=== PATIENT | female | born 2005 | race Caucasian/White ===

== ENCOUNTER 2023-10-08 22:15 | Inpatient (IN) | payer OTHER ==
[2023-10-08] MEDS ORDERED: CARBOPROST TROMETHAMINE 250 MCG/ML 1 ML AMP IM PRN (22:49)
[2023-10-08] MEDS ORDERED: TERBUTALINE 1 MG/ML VIAL SQ PRN (22:49)
[2023-10-08] MEDS ORDERED: METHYLERGONOVINE 0.2 MG/ML 1 ML AMP IM PRN (22:49)
[2023-10-08] MEDS ORDERED: OXYTOCIN 10 UNIT/ML 1 ML VIAL IM PRN (22:49)
[2023-10-08] MEDS ORDERED: miSOPROStoL 200 MCG TAB PO PRN (22:49)
[2023-10-08] MEDS ORDERED: TRANEXAMIC 1,000 MG/100ML-NACL 1,000 MG in EMPTY BAG 1 BAG IV PRN (22:49)
[2023-10-08] MEDS ORDERED: OXYTOCIN 30 UNITS/500 ML NS 30 UNIT in SALINE 1 500ML.BAG IV SCH (23:00)
--- NOTE | 2023-10-08 23:10 | P.HPOB ---
History of Present Illness H&P Date: 10/08/23 Chief Complaint: Leakage of fluid Ms. Villagomez is a 18 year old at 37 weeks and 1 day with EDC of 10/28/2023 by 7 week US who presents to labor and delivery with grossly ruptured membranes with clear amniotic fluid. The patient denies vaginal bleeding, contractions. She is feeling normal movement at this time. The is otherwise complicated by a maternal weight gain of over 50 pounds during the . On growth US at 33 weeks, the fetus was estimated in the 18%ile for weight. work-up: AB positive, antibody engative, rubella non-immune, VDRL non- reactive, HBsAg negative, HIV negative, HCV Ab negative, gonorrhea negative, chlamydia negative, 1 hour GTT within normal limits, GBS negative. Past medical history: Scoliosis Past Medical History History of Any Multi-Drug Resistant Organisms: None Reported Smoking Status: Never smoker Medications and Allergies Home Medications Medication Instructions Recorded Confirmed Type Vit No.179/Iron/Folic 1 each PO DAILY 10/08/23 10/08/23 History [ Tablet] Allergies Allergy/AdvReac Type Severity Reaction Status Date / Time No Known Allergies Allergy Verified 10/08/23 22:23 Exam Vital Signs Temp Pulse Resp BP Pulse Ox 10/08/23 22:23 98.2 F 105 H 19 122/81 97 Intake and Output 10/08/23 10/08/23 10/09/23 14:59 22:59 06:59 Other: Weight 66.678 kg Focused physical exam is performed. This is a healthy-appearing in no apparent distress. Breathing is non-labored. Abdomen is gravid and non-tender. Cervical exam is 1 cm, 50% effacement, -3 station per the OB RN. Extrem ities non-tender and non-edematous. heart tones are reactive and reassuring on NST, no contractions appreciated on tocometer. Assessment and Plan Assessment: 18 year old at 37 weeks and 1 days with prelabor rupture of membranes Plan: Admit, NPO, pitocin per protocol, continuous EFM and tocometer, close monitoring of patient. Anticipate vaginal delivery. Time with Patient: Less than 30
[2023-10-08] MEDS: LACTATED RINGERS 1,000 ML IV SCH (23:22)
[2023-10-08] MEDS: OXYTOCIN 30 UNITS/500 ML NS 30 UNIT in SALINE 1 500ML.BAG IV SCH (23:23)
[2023-10-09 00:03] LABS: Basophils % (A) 0 %; Eosinophils # (A) 0.3 k/uL (0-0.7); Eosinophils % (A) 2 %; HCT 36.5 % (34.0-46.0); HGB 12.3 gm/dL (11.4-16.0); Lymphocytes # (A) 2.4 k/uL (1.0-4.8); Lymphocytes % (A) 19 %; MCH 30.4 pg (25.0-35.0); MCHC 33.8 g/dL (31.0-37.0); MCV 89.9 fL (80.0-100.0); Monocytes # (A) 0.8 k/uL (0-1.0); Monocytes % (A) 6 %; Neutrophils # (A) 8.6 k/uL (1.3-7.7); Neutrophils % (A) 70 %; Platelet Count 252 k/uL (150-450); RBC 4.06 m/uL (3.80-5.40); RDW 13.3 % (11.5-15.5); WBC 12.4 k/uL (4.0-11.0)
[2023-10-09] MEDS: NALBUPHINE 10 MG/ML (10 ML MDV) IV PRN (06:15)
[2023-10-09 08:33] LABS: INR 0.8 (<1.2); Partial Thromboplastin Time 23.5 sec (22.0-30.0); Prothrombin Time 9.5 sec (10.0-12.5)
[2023-10-09 08:54] LABS: ALT 13 U/L (4-34); AST 23 U/L (14-36); African American GFR (CKD) >90 (>60 ml/min/1.73 sqM); Blood Urea Nitrogen 7 mg/dL (7-17); LDH 245 U/L (120-246); Non-African American GFR(CKD) >90 (>60 ml/min/1.73 sqM)
[2023-10-09 09:38] LABS: Uric Acid 4.8 mg/dL (3.7-7.4)
[2023-10-09] MEDS ORDERED: diphenhydrAMINE 25 MG CAP PO PRN (11:49)
[2023-10-09] MEDS ORDERED: diphenhydrAMINE 50 MG/ML 1 ML VIAL IVP PRN ×2 (11:49)
[2023-10-09] MEDS ORDERED: LANOLIN CREAM 1 GM TUBE TOPICAL PRN (11:49)
[2023-10-09] MEDS ORDERED: SIMETHICONE 80 MG CHEWABLE PO PRN (11:49)
[2023-10-09] MEDS ORDERED: ZOLPIDEM 5 MG TAB PO PRN (11:49)
[2023-10-09] MEDS ORDERED: IBUPROFEN 600 MG TAB PO PRN (11:49)
[2023-10-09] MEDS ORDERED: HYDROCORTISONE 2.5% RECTAL CREAM 30 GM TUBE RECTAL PRN (11:49)
[2023-10-09] MEDS ORDERED: ACETAMINOPHEN TAB 325 MG TAB PO PRN (11:49)
[2023-10-09] MEDS ORDERED: diphenhydrAMINE 50 MG CAP PO PRN (11:49)
--- NOTE | 2023-10-09 11:49 | P.PROBDLV ---
Vaginal Delivery Note - . Vaginal Delivery Note: DATE OF SERVICE: 10/09/2023 PROCEDURE: Normal Vaginal Delivery ATTENDING: Dr. Luzmaria Syed MD ESTIMATED BLOOD LOSS: 100 mL FINDINGS: VMI, Apgars 8/9. Weight 5 pounds and 7 ounces (2460 grams) PROCEDURE: Ms. Villagomez is a 18 year old at 37 weeks and 2 days presenting to labor and delivery for prelabor rupture of membranes at 2044 on 10/07 revealing clear amniotic fluid. The has been complicated by maternal anxiety and depression for which she followed with a pyschiatrist and took Cymbalta. For further details, please review the admitting H&P. Pitocin was started per protocol. The patient received epidural anesthesia per her request. The patient was completely dilated at 1110. She pushed very effectively with Category II heart tones. A viable male infant was delivered over an intact perineum at 1129. The was placed on the maternal abdomen and bulb suctioned. The infant was noted to be spontaneously crying. Cord was clamped and cut after a 30-second delay. The was handed off to the pediatric team. Placenta was delivered whole with gentle cord traction at 1131. Oxytocin was started to facilitate uterine tone. Uterine fundus was found to be firm and below the umbilicus upon fundal massage. Thorough examination of the cervix, vagina, periurethral area, and perineum revealed a superficial left labia majora laceration. The patient is stable and allowed to begin the bonding process.
[2023-10-09] MEDS: LIDOCAINE 0.5% (PF) 5 MG/ML (50 ML SDV) SQ PRN (13:29)
[2023-10-09] MEDS: BENZOCAINE/MENTHOL SPRAY 1 GM/SPRAY AEROSOL TOPICAL PRN (13:30)
[2023-10-09] MEDS: SENNOSIDES-DOCUSATE SODIUM 1 EACH TAB PO SCH (20:49)
[2023-10-09] MEDS: MEASLES-MUMPS-RUBELLA VACC/PF 12,500 UNIT/0.5 ML VIAL SQ ONE (20:51)
[2023-10-10 08:34] LABS: Basophils % (A) 0 %; Eosinophils # (A) 0.2 k/uL (0-0.7); Eosinophils % (A) 1 %; HCT 33.7 % (34.0-46.0); Lymphocytes # (A) 2.8 k/uL (1.0-4.8); Lymphocytes % (A) 18 %; MCH 29.2 pg (25.0-35.0); MCHC 32.5 g/dL (31.0-37.0); Mean Platelet Volume 9.7; Monocytes # (A) 0.9 k/uL (0-1.0); Monocytes % (A) 6 %; Neutrophils # (A) 11.2 k/uL (1.3-7.7); Neutrophils % (A) 73 %; Platelet Count 212 k/uL (150-450); RBC 3.74 m/uL (3.80-5.40); RDW 13.2 % (11.5-15.5); WBC 15.3 k/uL (4.0-11.0)
--- NOTE | 2023-10-10 09:03 | P.DS ---
Providers Date of admission: 10/08/23 22:46 Expected date of discharge: 10/10/23 Attending physician: Luzmaria Syed MD Primary care physician: Stated None Hospital Course: Ms. Villagomez is a 18 year old now PPD#1 s/p normal vaginal delivery after prelabor rupture of membranes with pitocin induction. The patient is doing well this morning and had no acute events overnight. She has no complaints this morning. She reports minimal lochia, passing flatus, voiding without difficulty, ambulating, and eating/drinking without nausea or vomiting. Infant doing well at bedside, s/p circumcision. She denies chest pain, shortness of breathing, fevers, or chills overnight. She denies pain or swelling in the legs. restrictions are reviewed with the patient including pelvic rest for 6 weeks. The patient is encouraged to call the office if she experiences any heavy bleeding, foul-smelling discharge, breast complaints, or any if she has any other concerns. She will follow up in the office with in 6 weeks for postoperative exam. The patient will take Motrin and Tylenol OTC as needed for pain. All questions are answered. Assessment: 18 year old PPD#1 s/p normal vaginal delivery Patient Condition at Discharge: Good Plan - Discharge Summary New Discharge Prescriptions: No Action Vit No.179/Iron/Folic [ Tablet] 1 each PO DAILY Discharge Medication List Vit No.179/Iron/Folic [ Tablet] 1 each PO DAILY 10/08/23 [History] Follow up Appointment(s)/Referral(s): Luzmaria Syed MD [STAFF PHYSICIAN] - 11/20/23 1:45 pm Activity/Diet/Wound Care/Special Instructions: Instructions 1. Do not begin any exercise program for 3 weeks. 2. Do not resume sexual relations for 6 weeks or longer if uncomfortable. 3. You may take tub baths or showers at any time. 4. You may use tampons if desired after 6 weeks. 5. Keep any areas repaired with stitches clean and dry. 6. If you are not nursing, wear a good fitting, supportive bra during the day and limit fluid intake for at least 1 week to prevent breast engorgement. 7. Call the office, , within the next week to make appointment for your 6 week checkup if it has not already been made. 8. Report any of the following occurrences to the doctor promptly: a. Heavy, excessive bleeding b. Chills, fever c. Burning or frequency of urination d. Pain or redness and breasts if nursing e. Increasing pain or swelling of vulva (stitches). In addition to the above instructions, the following additional should be followed: 1. No heavy lifting or straining (exercising) until after 6 week checkup. 2. Keep abdominal incision clean and dry: You may wear a dressing if more comfortable. 3. Make office appointment for 2 weeks after delivery date. Discharge Disposition: HOME SELF-CARE
[2023-10-10 10:43] VITALS: BP 126/87; PULSE 85; RESP 15; TEMP 98.1
== END 2023-10-10 13:30 | disposition home or self-care (01) | DRG 560 ==
LOC: FBPOP 22:15 → 4FBP 22:46
PROVIDERS: ADMIT Obstetrics & Gynecology; ATTEND Obstetrics & Gynecology
PROC: 10E0XZZ Delivery of Products of Conception, External Approach (ICD-10-PCS; principal; 2023-10-09)
DX: O99.344 Other mental disorders complicating childbirth (principal); Z37.0 Single live birth; F32.A Depression, unspecified; F41.9 Anxiety disorder, unspecified; O71.82 Other specified trauma to perineum and vulva; Z3A.37 37 weeks gestation of pregnancy
CPT/HCPCS: 59025; 82565; 83615; 84112; 84450; 84460; 84520; 84550; 85025; 85610; 85730; 86850; 86900; 86901; 99213